=== PATIENT | male | born 1960 | race Caucasian/White ===

== ENCOUNTER 2016-10-22 01:36 | Emergency (ER) | payer OTHER ==
[2016-10-22] MEDS ORDERED: ZOFRAN IV ONE ×3 (02:03→03:04)
[2016-10-22] MEDS ORDERED: NS 1,000 ML IV ONE (02:03)
[2016-10-22] MEDS ORDERED: DILAUDID IV ONE ×4 (02:03→04:16)
[2016-10-22] MEDS ORDERED: NS 500 ML IV ONE (02:04)
[2016-10-22 02:14] LABS: MANUAL DIFF NEEDED? NO
[2016-10-22 02:17] LABS: BASO% 0.4 % (0.0-0.8); EOS# 0.11 X1000 (0.0-0.7); EOS% 1.1 % (0.0-10.0); HEMATOCRIT 48.3 % (42.0-52.0); HEMOGLOBIN 17.2 g/dL (14.0-18.0); IMM GRAN# 0.02 X1000 (0.0-0.04); IMM GRAN% 0.2 % (0.0-0.5); LYMPH# 2.19 X1000 (1.2-3.4); MCH 31.7 PG (27-31); MCHC 35.6 g/dL (33-37); MONO# 0.89 X1000 (0.11-0.59); MONO% 8.9 % (1.7-9.3); MPV 9.5 FL (7.4-10.4); NEUT% 67.4 % (42.2-75.2); PLT 187 X1000 (130-400); RBC 5.43 XMIL (4.7-6.1)
--- NOTE | 2016-10-22 02:17 | PROVIDER DOCUMENTATION ---
HPI-Male Problem - General Source: patient - History of Present Illness-Male Location of Complaint: reports: left flank Radiation: reports: LLQ, urethral Quality of Pain: reports: burning, sharp Severity in ED: reports: severe Onset/Duration: reports: this evening Timing: reports: still present, getting worse Urinary Symptoms: reports: low back pain Associated Symptoms: reports: nausea, vomiting. denies: diarrhea, fever/chills , trouble walking Similar Symptoms Previously?: Yes Recently seen or treated by another doctor?: No <Gen Rodriguez - Last Filed: 10/22/16 02:11> <Travis Campos - Last Filed: 10/22/16 04:18> - General Chief Complaint: Flank Pain Stated Complaint: KIDNEY STONE Time Seen by Provider: 10/22/16 01:55 Allergies/Adverse Reactions: Patient Allergies Allergy/AdvReac Type Severity Reaction Status Date / Time No Known Allergies Allergy Verified 10/22/16 01:56 Home Medications: Home Medication List Medication Instructions Recorded Confirmed Last Taken Type Ciprofloxacin HCl [Cipro] 500 mg PO BID #10 tablet 10/22/16 Unknown Rx Hydrochlorothiazide 12.5 mg PO DAILY 10/22/16 10/22/16 10/21/16 08:00 History Hydrocodone/Acetaminophen [[place] 1 each PO TID PRN PRN #15 tablet 10/22/16 Unknown Rx 7.5-325 Tablet] Lisinopril 30 mg PO DAILY 10/22/16 10/22/16 10/21/16 08:00 History Omeprazole 40 mg PO DAILY 10/22/16 10/22/16 10/21/16 08:00 History Ondansetron Odt [Zofran 4 mg Odt] 4 mg PO Q6H PRN PRN #10 tablet 10/22/16 Unknown Rx Tamsulosin [Flomax] 0.4 mg PO DAILY #7 capsule 10/22/16 Unknown Rx - History of Present Illness-Male Nature of Presenting Problem: Pt is a 56 y/o male with left flank pain, N/V and pain in his penis that began at 5pm tonight. Pt says on Wednesday he had this pain and thought he had a kidney stones or constipation. Pt says he drank lots of water trying to flush it out and took stool softener to clean him out. The pain lasted 3 days and went away. Pt had a stone 10 years ago and says this pain feel the same. ( Gen Rodriguez) Review of Systems - Adult - REVIEW OF SYSTEMS - ADULT Constitutional: denies: chills, fever Eyes: reports: no symptoms reported Ears, Nose, Mouth & Throat: reports: no symptoms reported Cardiovascular: denies: chest pain, edema Respiratory: denies: cough, shortness of breath, wheezing Gastrointestinal: reports: abdominal pain, nausea, vomiting. denies: constipation, diarrhea Genitourinary: reports: flank pain, other (penis pain). denies: dysuria, discharge Musculoskeletal: reports: no symptoms reported Integumentary: reports: no symptoms reported Neurological: reports: no symptoms reported Psychiatric: reports: no symptoms reported Endocrine: reports: no symptoms reported Hematologic/Lymphatic: reports: no symptoms reported Allergic/Immunologic: reports: no symptoms reported All Other Systems: Reviewed and Negative <Gne Rodriguez - Last Filed: 10/22/16 02:11> Past History - Adult - PAST MEDICAL HISTORY-ADULT Review of Records: reports: Old Records Reviewed, Nursing Assessment Review, Medications Reviewed Genitourinary: reports: kidney stones - SOCIAL HISTORY Smoking: cigarettes, less than 1 pack/day Substance Use: none/never Living Situation: family <Gen Rodriguez - Last Filed: 10/22/16 02:11> Physical Exam-General - PHYSICAL EXAM-ADULT Initial Vital Signs Reviewed: Yes - CONSTITUTIONAL General Appearance: alert, no apparent distress, obese - EYES Eyes: PERRL/EOMI, pink conjunctivae - HEAD, EARS, NOSE, MOUTH & THROAT HENMT: moist mucous membranes, normal ENT inspection, TMs normal, pharynx normal - NECK Neck: non-tender, full range of motion, supple, normal inspection - RESPIRATORY Respiratory: lungs clear, normal breath sounds, no pleuratic chest pain, no respiratory distress, no accessory muscle use - CARDIOVASCULAR Cardiovascular: normal peripheral pulses, tachycardia - GASTROINTESTINAL (ABDOMEN) Abdominal Exam: normal bowel sounds, soft, tenderness (LLQ) - MUSCULOSKELETAL Back Exam: no vertebral tenderness, CVA tenderness (left) Extremity: normal range of motion, non-tender, normal gait, normal inspection - SKIN Integumentary: normal color, normal turgor, warm/dry - NEUROLOGIC Neurologic: grossly normal, no motor/sensory deficits - PSYCHIATRIC Psych/Mental Status: normal mood/affect, normal thought content, normal thought process, oriented x 3 <Gen Rodriguez - Last Filed: 10/22/16 02:11> Progress - REASSESSMENT Reassessment #1 Time Reassessed: 04:11 Status: improving - CT/MRI 1 CT Study: Abdomen Impression: Abnormal (3 mm stone distal lt ureter w/mil hydro//// gallstone w/ no cholecystitis/// lll small nodule), See EMR Report <Travis Campos - Last Filed: 10/22/16 04:18> Departure <Gen Rodriguez - Last Filed: 10/22/16 02:11> - Departure Time of Disposition Order: 04:13 Certified Medical Emergency: Emergent <Travis Campos - Last Filed: 10/22/16 04:18> - Departure DIAGNOSIS: Nephrolithiasis, Renal colic on left side Disposition: HOME 01 Condition: Stable Additional Instructions: ED Follow Up Instructions:follow by pcp opd w/repeat cxr in 4 weeks .....see the urologist and surgeon as referred You have been treated by a care provider in the Emergency Department. These instructions are being provided to you so you can have an understanding of how to care for yourself upon discharge. Upon discharge from the Emergency Department, you are responsible for making arrangements for follow-up care by a physician of your choice. Take all prescribed medications as directed. Return to the Emergency Department immediately for any new or worsening symptoms. You may call the Physician Referral phone number at [phone] to obtain a list of Physicians who are taking new patients. Prescriptions: Ciprofloxacin HCl [Cipro] 500 mg PO BID #10 tablet Tamsulosin [Flomax] 0.4 mg PO DAILY #7 capsule Hydrocodone/Acetaminophen [[place] 7.5-325 Tablet] 1 each PO TID PRN PRN #15 tablet PRN Reason: Pain Ondansetron Odt [Zofran 4 mg Odt] 4 mg PO Q6H PRN PRN #10 tablet PRN Reason: Nausea And Vomiting Referrals: None,PCP [Primary Care Provider] - Josiah Mcmanus MD [STAFF PHYSICIAN] - Dawson Trammell MD [STAFF PHYSICIAN] - Attestation - Scribe Verification/Attestation Scribe:: Gen Rodriguez Acting as Scribe for:: Travis Campos Scribe documention review:: This chart was documented by a scribe and accurately reflects the service the provider performed and the decisions made by the provider. <Gen Rodriguez - Last Filed: 10/22/16 02:11> Physician Attestation
[2016-10-22 02:34] LABS: AGAP 20; ALBUMIN 4.4 g/dL (3.5-5.0); ALKALINE PHOSPHATASE 64 U/L (32-122); AMYLASE 32 U/L (20-200); BUN 10 mg/dL (8-22); CALCIUM 9.4 mg/dL (8.8-10.2); CHLORIDE 96 mmol/L (98-107); COSMO 279; GOT 35 U/L (10-34); GPT 48 U/L (10-44); LIPASE 21 U/L (13-60); POTASSIUM 3.2 mmol/L (3.5-5.1); SODIUM 139 mmol/L (136-145); TCO2 23 mmol/L (25-35); TOTAL BILIRUBIN 1.03 mg/dL (0.20-1.00); TOTAL PROTEIN 7.9 g/dL (6.3-8.3)
[2016-10-22 02:46] LABS: URINE CULTURE NEEDED? NO; URINE MICRO REVIEW NEEDED? NO; URINE SOURCE CLEAN CATCH
[2016-10-22 02:50] LABS: BILIRUBIN URINE NEGATIVE (NEGATIVE); BLOOD URINE MODERATE (NEGATIVE); COLOR YELLOW; GLUCOSE URINE NEGATIVE (NEGATIVE); LEUKOCYTES URINE NEGATIVE (NEGATIVE); NITRITE URINE NEGATIVE (NEGATIVE); PROTEIN URINE 50 mg/dL (NEGATIVE); SP GRAVITY URINE 1.021; TURBIDITY URINE CLEAR (CLEAR); UR EPITHELIAL CELLS <10 /HPF (<10); URINE BACTERIA NEGATIVE /HPF; URINE RBC TNTC /HPF (<10); URINE WBC <10 /HPF (<10); UROBILINOGEN URINE NORMAL (NORMAL)
[2016-10-22] MEDS ORDERED: SODIUM CHLORIDE 0.9% INJ ONE (04:16)
[2016-10-22] MEDS ORDERED: PHENERGAN IV ONE (04:16)
[2016-10-22 04:33] VITALS: BP 147/69
--- NOTE | 2016-10-22 08:23 | Diag Imaging Result Document ---
PROCEDURE NAME: CT ABD/PELVIS W/ IV CONT ONLY - 10/22/2016 CT ABDOMEN PELVIS WITH INTRAVENOUS CONTRAST, 10/22/2016: A CT dose reduction protocol was used. COMPARISON: None. FINDINGS: There is an obstructing left distal ureter stone measuring about 5 mm. There is moderately severe left hydronephrosis with some delay in renal functioning and perinephric and periureteral edema. No other definite renal stones. There is dependent atelectasis in the lung bases. Small nodule in the lingula measures about 9 mm. This is indeterminate. Heart size is normal. There is mild fatty change of the liver. Tiny gallstone in the gallbladder. The pancreas, spleen, and adrenals are normal. No bowel obstruction or inflammation. There is a diverticulum at the sigmoid colon. Urinary bladder, prostate, and rectum are normal. Bony structures are intact. IMPRESSION: 1. Obstructing left distal ureter stone with hydronephrosis, delayed renal functioning, and adjacent edema. 2. Tiny gallstone in the gallbladder. 3. Pulmonary nodule in the lingula. Recommend a followup full chest CT in about 6 months. 4. Mild fatty liver. [facility]
== END 2016-10-22 05:00 | disposition home or self-care (01) ==
LOC: ED 01:36
DX: N13.2 Hydronephrosis with renal and ureteral calculous obstruction (principal); K80.20 Calculus of gallbladder without cholecystitis without obstruction; K76.0 Fatty (change of) liver, not elsewhere classified; R91.1 Solitary pulmonary nodule; R10.32 Left lower quadrant pain; M54.5 Low back pain; R11.2 Nausea with vomiting, unspecified; R00.0 Tachycardia, unspecified; N48.89 Other specified disorders of penis; E66.9 Obesity, unspecified; Z87.442 Personal history of urinary calculi; F17.210 Nicotine dependence, cigarettes, uncomplicated; Z79.899 Other long term (current) drug therapy
CPT/HCPCS: 74177; 80053; 81001; 82150; 83690; 85025; J1170; J2405; J2550; J7030; Q9967